=== PATIENT | female | born 1990 | race African-American/Black ===

== ENCOUNTER 2018-01-24 15:01 | Emergency (ER) | payer SELFPAY ==
[~2018-01-24] VITALS: Ht 175.3 cm; Wt 106.9 kg
[2018-01-24 16:04] LABS: BASO # 0.1 x10^3/uL (0.0-0.2); BASO % 1 % (0-3); EOS # 0.4 x10^3/uL (0.0-0.7); EOS % 6 % (0-3); HEMATOCRIT 39.2 % (36.0-47.0); HEMOGLOBIN 12.7 g/dL (12.0-15.5); LYMPH # 1.7 x10^3/uL (1.0-4.8); LYMPH % 29 % (24-48); MEAN CORPUSCULAR HEMOGLOBIN 26 pg (25-35); MEAN CORPUSCULAR HGB CONC 32 g/dL (31-37); MEAN CORPUSCULAR VOLUME 81 fL (79-100); MONO # 0.4 x10^3/uL (0.0-1.1); MONO % 6 % (0-9); NEUT # 3.5 x10^3uL (1.8-7.7); NEUT % 58 % (31-73); PLATELET COUNT 231 x10^3/uL (140-400); RED BLOOD COUNT 4.83 x10^6/uL (3.50-5.40); RED CELL DISTRIBUTION WIDTH 14.8 % (11.5-14.5)
[2018-01-24 16:13] LABS: BILIRUBIN,URINE NEG (NEG); CLARITY,URINE CLEAR; COLOR,URINE YELLOW; GLUCOSE,URINE NEG (NEG)
[2018-01-24 16:14] LABS: BACTERIA,URINE 0 /HPF (0-FEW); BARBITURATES NEG (NEG); BENZODIAZEPINES NEG (NEG); CANNABINOIDS NEG (NEG); COCAINE NEG (NEG); METHADONE NEG (NEG); NITRITE,URINE NEG (NEG); OPIATES NEG (NEG); PHENCYCLIDINE NEG (NEG); SQUAMOUS EPITHELIAL CELL,UR FEW /LPF; U PREG PATIENT NEGATIVE (NEG); UROBILINOGEN,URINE 0.2 mg/dL (0.2 mg/dL); WBC,URINE OCC /HPF (0-4)
[2018-01-24 16:14] LABS: ALBUMIN 3.8 g/dL (3.4-5.0); CALCIUM 8.9 mg/dL (8.5-10.1); CREATININE 0.9 mg/dL (0.6-1.0); DIRECT BILIRUBIN 0.1 mg/dL (0.0-0.2); GFR 91.6; POTASSIUM 4.1 mmol/L (3.5-5.1); TOTAL BILIRUBIN 0.3 mg/dL (0.2-1.0)
[2018-01-24 16:17] LABS: AMPHETAMINE/METHAMPHETAMINE NEG (NEG)
--- NOTE | 2018-01-24 16:26 | PHYS DOC ---
Adult General Chief Complaint Chief Complaint: SUICDAL IDEATION [facility] HPI Patient is a 27 year old female who presents with complaining of suicidal ideation. Patient states she was diagnosed with schizobipolar disorder but doesn 't take any medication. Patient had her fourth child 2 months ago with breast- feeding her . Patient complaining of suicidal ideation before her delivery that getting worse after having her delivery. Patient complaining of increasing of suicidal ideation since this morning after her or this daughter who is 7-year-old tried to run away from home. Patient states she had plan to take overdose of pills to kill herself. Patient complaining of hallucination without homicidal ideation or plan to hurt her children. Patient denies using drugs and alcohol and mental hospitalization. Patient had suicidal ideation in adolescent. Review of Systems Review of Systems Constitutional: Denies fever or chills [] Eyes: Denies change in visual acuity, redness, or eye pain [] HENT: Denies nasal congestion or sore throat [] Respiratory: Denies cough or shortness of breath [] Cardiovascular: No additional information not addressed in HPI [] GI: Denies abdominal pain, nausea, vomiting, bloody stools or diarrhea [] : Denies dysuria or hematuria [] Musculoskeletal: Denies back pain or joint pain [] Integument: Denies rash or skin lesions [] Neurologic: Denies headache, focal weakness or sensory changes [] Endocrine: Denies polyuria or polydipsia [] All other systems were reviewed and found to be within normal limits, except as documented in this note. Allergies Allergies Allergies Coded Allergies Type Severity Reaction Last Updated Verified No Known Drug Allergies 01/24/18 No Physical Exam Physical Exam Constitutional: Well developed, well nourished, mild distress, non-toxic appearance. [] HENT: Normocephalic, atraumatic Eyes: PERRLA, EOMI, conjunctiva normal, no discharge. [] Neck: Normal range of motion, no tenderness, supple, no stridor. [] Cardiovascular:Heart rate regular rhythm, no murmur [] Lungs & Thorax: Bilateral breath sounds clear to auscultation [] Abdomen: Bowel sounds normal, soft, no tenderness, no masses, no pulsatile masses. [] Skin: Warm, dry, no erythema, no rash. [] Back: No tenderness, no CVA tenderness. [] Extremities: No tenderness, no cyanosis, no clubbing, ROM intact, no edema. [] Neurologic: Alert and oriented X 3, normal motor function, normal sensory function, no focal deficits noted. [] Psychologic: Affect depressed and tearful, judgement normal, suicidal ideation. Current Patient Data Lab Results Laboratory Tests Test 01/24/18 15:38 01/24/18 15:45 Urine Collection Type Unknown Urine Color Yellow Urine Clarity Clear Urine pH 6.0 Urine Specific [place] 1.020 Urine Protein Neg (NEG-TRACE) Urine Glucose (UA) Neg mg/dL (NEG) Urine Ketones (Stick) Neg mg/dL (NEG) Urine Blood Trace (NEG) Urine Nitrite Neg (NEG) Urine Bilirubin Neg (NEG) Urine Urobilinogen Dipstick 0.2 mg/dL (0.2 mg/dL) Urine Leukocyte Esterase Trace (NEG) Urine RBC 1-2 /HPF (0-2) Urine WBC Occ /HPF (0-4) Urine Squamous Epithelial Cells Few /LPF Urine Bacteria 0 /HPF (0-FEW) Urine Test Negative (NEG) White Blood Count 6.0 x10^3/uL (4.0-11.0) Red Blood Count 4.83 x10^6/uL (3.50-5.40) Hemoglobin 12.7 g/dL (12.0-15.5) Hematocrit 39.2 % (36.0-47.0) Mean Corpuscular Volume 81 fL (79-100) Mean Corpuscular Hemoglobin 26 pg (25-35) Mean Corpuscular Hemoglobin Concent 32 g/dL (31-37) Red Cell Distribution Width 14.8 % (11.5-14.5) H Platelet Count 231 x10^3/uL (140-400) Neutrophils (%) (Auto) 58 % (31-73) Lymphocytes (%) (Auto) 29 % (24-48) Monocytes (%) (Auto) 6 % (0-9) Eosinophils (%) (Auto) 6 % (0-3) H Basophils (%) (Auto) 1 % (0-3) Neutrophils # (Auto) 3.5 x10^3uL (1.8-7.7) Lymphocytes # (Auto) 1.7 x10^3/uL (1.0-4.8) Monocytes # (Auto) 0.4 x10^3/uL (0.0-1.1) Eosinophils # (Auto) 0.4 x10^3/uL (0.0-0.7) Basophils # (Auto) 0.1 x10^3/uL (0.0-0.2) Sodium Level 138 mmol/L (136-145) Potassium Level 4.1 mmol/L (3.5-5.1) Chloride Level 103 mmol/L (98-107) Carbon Dioxide Level 30 mmol/L (21-32) Anion Gap 5 (6-14) L Blood Urea Nitrogen 7 mg/dL (7-20) Creatinine 0.9 mg/dL (0.6-1.0) Estimated GFR (Cockcroft-Gault) 91.6 Glucose Level 84 mg/dL (70-99) Calcium Level 8.9 mg/dL (8.5-10.1) Magnesium Level 2.0 mg/dL (1.8-2.4) Total Bilirubin 0.3 mg/dL (0.2-1.0) Direct Bilirubin 0.1 mg/dL (0.0-0.2) Aspartate Amino Transferase (AST) 19 U/L (15-37) Alanine Aminotransferase (ALT) 24 U/L (14-59) Alkaline Phosphatase 95 U/L (46-116) Total Protein 8.0 g/dL (6.4-8.2) Albumin 3.8 g/dL (3.4-5.0) Ethyl Alcohol Level < 10 mg/dL (0-10) EKG EKG [] Radiology/Procedures Radiology/Procedures [] Course & Med Decision Making Course & Med Decision Making Evaluation of patient in ER showed 27-year-old female patient with suicidal ideation. Waiting for psych evaluation. Patient care transferred to Dr Noonan at 1800. Shaista: I received signout at 1800. This patient is waiting psychiatric evaluation. Psychiatric screener saw this patient recommended involuntary hold. Several concerning features including the patient is a 6-week-old baby at home and has had thoughts of suicide and also apparently according to nursing staff, patient felt that the cats at home were evil and actually starved them to in their cages recently Patient at around 1930 was trying to leave the emergency room I did ask her to stay because we had to evaluate her further. Eventually we got her back into a gown but then she recurrently was at the doorway and repeatedly tried to leave the emergency room. Ultimately we did try to give her oral agents for calming however she began to swear at the nursing even physically lunged reports the nurse this required us to initiate a code tejeda resulting in 4. restraints by nursing staff myself and security. We also gave multiple doses of sedative agents which ultimately did result in appropriate and safe sedation for this patient. I reevaluated her 30 minutes after the restraints were placed and she was sleeping and on oxygen monitor and in no apparent distress with a one-to- one sitter. Reevaluation at 4 AM patient was sleeping comfortably awaiting placement possibly in a [facility]. Currently waiting on that care to nina Patient was signed out to me by Dr. Noonan and at the time of his departure, patient was awaiting mental health evaluation. After that evaluation, patient was deemed likely an imminent threat to herself or others and has been placed on involuntary hold. Dr. Duque at the [facility] has accepted patient in transfer. Dragon Disclaimer Dragon Disclaimer This electronic medical record was generated, in whole or in part, using a voice recognition dictation system. Departure Departure: Impression: Primary Impression: Suicidal ideation Disposition: 65 XFER TO PSYCH HOSP/UNIT Referrals: DELMAR HODGE MD (PCP) BAILEE MAYA MD Jan 24, 2018 16:26 RJ NOONAN MD Jan 25, 2018 04:34 CHRISTIANO MARTINEZ Jr. DO Jan 25, 2018 12:38
[2018-01-24] MEDS ORDERED: OLANZapine IM 10 MG VIAL. IM ONE ×2 (23:27→23:45)
[2018-01-24] MEDS ORDERED: MIDAZOLAM HCL PF 5 MG/5 ML VIAL. ONE (23:43)
[2018-01-25] MEDS ORDERED: OLANZapine IM 10 MG VIAL. IM ONE
[2018-01-25] MEDS ORDERED: MIDAZOLAM HCL PF 5 MG/5 ML VIAL. IM ONE
[2018-01-25] MEDS ORDERED: HALOPERIDOL LACT 5 MG/ML VIAL. IM ONE (00:15)
[2018-01-25 14:35] VITALS: BP 134/82
== END 2018-01-25 14:15 ==
LOC: ER 15:01
DX: R45.851 Suicidal ideations (principal); R44.3 Hallucinations, unspecified
CPT/HCPCS: 36415; 80048; 80076; 80307; 81001; 81025; 83735; 85025; 87086; 96372; 99285; G0480; J1630; J2250; J3490; 99152; G0479